=== PATIENT | female | born 1955 | race Caucasian/White ===

== ENCOUNTER 2017-09-04 15:30 | Observation (INO) | payer OTHER ==
[2017-09-04 21:28] LABS: ADD MAN DIFF? NO
[2017-09-04 21:30] LABS: WHITE BLOOD COUNT 5.8 10^3/ul (4.8-10.8)
[2017-09-04 21:30] LABS: BASOPHILS % 0.5 % (0.0-2.0); EOSINOPHILS # 0.1 10^3/ul (0.0-0.5); EOSINOPHILS % 2.4 % (0.0-7.0); HEMATOCRIT 42.6 % (37.0-47.0); HEMOGLOBIN 14.1 g/dl (12.0-16.0); LYMPHOCYTES # 2.7 10^3/ul (0.8-2.9); LYMPHOCYTES % 45.8 % (15.0-51.0); MEAN CORPUSCULAR HEMOGLOBIN 29.3 pg (29.0-33.0); MEAN CORPUSCULAR HGB CONC 33.1 g/dl (32.0-37.0); MEAN CORPUSCULAR VOLUME 88.6 fl (82.0-101.0); MEAN PLATELET VOLUME 9.6 fl (7.4-10.4); MONOCYTE # 0.4 10^3/ul (0.3-0.9); MONOCYTES % 7.1 % (0.0-11.0); NEUTROPHIL # 2.5 10^3/ul (1.6-7.5); PLATELET COUNT 295 10^3/UL (140-415); RED BLOOD COUNT 4.81 10^6/ul (4.20-5.40); RED CELL DISTRIBUTION WIDTH 13.2 % (11.5-14.5)
[2017-09-04 21:46] LABS: INR 0.89; PROTIME 12.1 Sec (11.9-14.9); PT RATIO 0.9
[2017-09-04 21:48] LABS: ALANINE AMINOTRANSFERASE 30 IU/L (13-69); ALBUMIN 4.6 g/dl (3.3-4.9); ALBUMIN/GLOBULIN RATIO 1.21; ALKALINE PHOSPHATASE 101 IU/L (42-121); ANION GAP 15 (8-16); ASPARTATE AMINO TRANSFERASE 20 IU/L (15-46); BILIRUBIN,INDIRECT 0.3 mg/dl (0-1.1); BILIRUBIN,TOTAL 0.3 mg/dl (0.2-1.3); BLOOD UREA NITROGEN 22 mg/dl (7-20); CARBON DIOXIDE 25 mmol/L (21-31); CHLORIDE 110 mmol/L (97-110); CHOL/HDL RATIO 3.6 RATIO; CHOLESTEROL 234 mg/dl (100-200); CREATININE 0.64 mg/dl (0.44-1.00); GLUCOSE 117 mg/dl (70-220); HDL CHOLESTEROL 65 mg/dl (35-98); LDL CHOLESTEROL,CALCULATED 140 mg/dl; POTASSIUM 3.6 mmol/L (3.5-5.1); SODIUM 146 mmol/L (135-144); TOTAL PROTEIN 8.4 g/dl (6.1-8.1); TRIGLYCERIDES 144 mg/dl (0-149)
[2017-09-04 22:01] LABS: TROPONIN-I < 0.012 ng/ml (0.000-0.120)
[2017-09-04 23:03] LABS: ADD UMIC NO; UR ASCORBIC ACID NEGATIVE (NEGATIVE); UR BILIRUBIN (Dip) NEGATIVE (NEGATIVE); UR BLOOD (Dip) NEGATIVE (NEGATIVE); UR CLARITY CLEAR (CLEAR); UR COLOR YELLOW (YELLOW); UR GLUCOSE (Dip) NEGATIVE (NEGATIVE); UR KETONES (Dip) NEGATIVE (NEGATIVE); UR LEUKOCYTE ESTERASE (Dip) NEGATIVE Leu/ul (NEGATIVE); UR NITRITE (Dip) NEGATIVE (NEGATIVE); UR SPECIFIC GRAVITY (Dip) 1.023 (1.003-1.030); UR TOTAL PROTEIN (Dip) NEGATIVE (NEGATIVE); UR UROBILINOGEN (Dip) NEGATIVE (NEGATIVE)
[2017-09-05] MEDS ORDERED: ONDANSETRON 4 MG INJ IV (01:00)
[2017-09-05] MEDS ORDERED: ACETAMINOPHEN 325 MG TAB PO ×2 (01:00→08:00)
[2017-09-05] MEDS ORDERED: BISACODYL (EC) 5 MG TAB PO (08:00)
[2017-09-05] MEDS: ASPIRIN 81 MG TAB PO (09:03)
[2017-09-05] MEDS: AMLODIPINE 5 MG TAB PO (09:03)
[2017-09-05 10:17] LABS: CHOLESTEROL 230 mg/dl (100-200)
[2017-09-05 10:17] LABS: HDL CHOLESTEROL 57 mg/dl (35-98); LDL CHOLESTEROL,CALCULATED 152 mg/dl; TRIGLYCERIDES 105 mg/dl (0-149)
[2017-09-05 15:39] LABS: C-REACTIVE PROTEIN < 0.5 mg/dl (0.0-0.9)
[2017-09-05 16:02] LABS: ERYTHROCYTE SEDIMENTATION RATE 17 mm/Hr (0-30)
[2017-09-06] MEDS: AMLODIPINE 5 MG TAB PO (08:44)
[2017-09-06] MEDS: ASPIRIN 81 MG TAB PO (08:44)
[2017-09-06] MEDS: SUMATRIPTAN 25 MG TAB PO (12:11)
[2017-09-06] MEDS ORDERED: ACETAMINOPHEN 325 MG TAB PO (17:00)
[2017-09-06] MEDS: ATORVASTATIN 20 MG TAB PO (21:41)
[2017-09-07 06:05] LABS: ADD MAN DIFF? NO
[2017-09-07 06:16] LABS: WHITE BLOOD COUNT 4.2 10^3/ul (4.8-10.8)
[2017-09-07 06:16] LABS: BASOPHILS % 0.5 % (0.0-2.0); EOSINOPHILS # 0.2 10^3/ul (0.0-0.5); EOSINOPHILS % 3.6 % (0.0-7.0); HEMATOCRIT 43.2 % (37.0-47.0); LYMPHOCYTES # 1.8 10^3/ul (0.8-2.9); LYMPHOCYTES % 44.1 % (15.0-51.0); MEAN CORPUSCULAR HEMOGLOBIN 29.1 pg (29.0-33.0); MEAN CORPUSCULAR HGB CONC 32.4 g/dl (32.0-37.0); MEAN CORPUSCULAR VOLUME 89.8 fl (82.0-101.0); MEAN PLATELET VOLUME 9.6 fl (7.4-10.4); MONOCYTE # 0.4 10^3/ul (0.3-0.9); MONOCYTES % 9.2 % (0.0-11.0); NEUTROPHIL # 1.8 10^3/ul (1.6-7.5); NEUTROPHILS % 42.4 % (39.0-77.0); PLATELET COUNT 285 10^3/UL (140-415); RED BLOOD COUNT 4.81 10^6/ul (4.20-5.40); RED CELL DISTRIBUTION WIDTH 13.1 % (11.5-14.5)
[2017-09-07 06:54] LABS: ANION GAP 13 (8-16); BLOOD UREA NITROGEN 17 mg/dl (7-20); CALCIUM 9.4 mg/dl (8.4-10.2); CARBON DIOXIDE 27 mmol/L (21-31); CHLORIDE 109 mmol/L (97-110); CREATININE 0.72 mg/dl (0.44-1.00); GLUCOSE 113 mg/dl (70-220); POTASSIUM 4.4 mmol/L (3.5-5.1); SODIUM 145 mmol/L (135-144)
[2017-09-07 07:15] LABS: HEMOGLOBIN A1C 6.2 % (0-5.9)
[2017-09-07] MEDS: AMLODIPINE 5 MG TAB PO (09:00)
[2017-09-07] MEDS: ASPIRIN 81 MG TAB PO (09:00)
[2017-09-07] MEDS: PANTOPRAZOLE (EC) 40 MG TAB PO (12:11)
[2017-09-07] MEDS: IBUPROFEN 400 MG TAB PO (19:13)
[2017-09-07] MEDS: ATORVASTATIN 20 MG TAB PO (21:11)
[2017-09-08] MEDS: PANTOPRAZOLE (EC) 40 MG TAB PO (05:34)
[2017-09-08] MEDS: AMLODIPINE 5 MG TAB PO (08:47)
[2017-09-08] MEDS: ASPIRIN 81 MG TAB PO (08:47)
[2017-09-08] MEDS: ATORVASTATIN 20 MG TAB PO (20:03)
[2017-09-08] MEDS: IBUPROFEN 400 MG TAB PO (23:12)
[2017-09-09] MEDS: PANTOPRAZOLE (EC) 40 MG TAB PO (05:33)
[2017-09-09] MEDS: ASPIRIN 81 MG TAB PO (08:48)
[2017-09-09] MEDS: AMLODIPINE 5 MG TAB PO (08:48)
== END 2017-09-09 15:45 | disposition home or self-care (01) ==
LOC: MS4 09-05 00:35 → E/R 15:30 → MS4 09-05 06:26
DX: E87.1 Hypo-osmolality and hyponatremia (principal); R51 Headache; R20.0 Anesthesia of skin; I10 Essential (primary) hypertension; Z86.73 Personal history of transient ischemic attack (TIA), and cerebral infarction without residual deficits; Z93.0 Tracheostomy status; Z93.1 Gastrostomy status; E78.5 Hyperlipidemia, unspecified; E11.9 Type 2 diabetes mellitus without complications; Z79.82 Long term (current) use of aspirin; E66.9 Obesity, unspecified; Z68.32 Body mass index [BMI] 32.0-32.9, adult
CPT/HCPCS: 36415; 70450; 71045; 80048; 80053; 80061; 81003; 83036; 84484; 85025; 85610; 85651; 85730; 86140; 93005; 93306; 93880; 97116; 97161; 97167; 99285-25; G0378